=== PATIENT | male | born 1970 | race Two or more races ===

== ENCOUNTER 2019-04-27 13:28 | Emergency (ER) | payer MEDICAID ==
[~2019-04-27] VITALS: Ht 167.6 cm; Wt 100.0 kg
[~2019-04-27 13:28] MED LIST: CYCL-1 PO; HYDR-4383 PO
[2019-04-27] MEDS ORDERED: ondansetron/PF 4mg/2ml inj IV ONE (14:00)
[2019-04-27] MEDS ORDERED: normal saline 1000ML IV soln IVB ONE (14:00)
[2019-04-27] MEDS ORDERED: morphine 4 MG/ML inj SYRINge IV PRN (14:00)
[2019-04-27 14:13] LABS: BASOPHILS # (AUTO) 0.1 X10'3 (0-0.2); BASOPHILS % (AUTO) 0.7 % (0-1); EOSINOPHILS # (AUTO) 0.2 X10'3 (0-0.9); EOSINOPHILS % (AUTO) 2.1 % (0-6); HEMATOCRIT 45.8 % (42.0-52.0); HEMOGLOBIN 16.2 g/dl (14.0-17.9); LYMPHOCYTES # (AUTO) 2.4 X10'3 (1.1-4.8); LYMPHOCYTES % (AUTO) 22.2 % (21-51); MEAN CORPUSCULAR HEMOGLOBIN 31.2 PG (27.0-31.0); MEAN CORPUSCULAR HGB CONC 35.3 g/dL (33.0-36.5); MEAN CORPUSCULAR VOLUME 88.3 FL (78-98); MEAN PLATELET VOLUME 7.3 FL (7.4-10.4); MONOCYTES # (AUTO) 0.8 X10'3 (0-0.9); MONOCYTES % (AUTO) 7.5 % (2-12); NEUTROPHILS # (AUTO) 7.4 X10'3 (1.8-7.7); NEUTROPHILS % (AUTO) 67.5 % (42-75); PLATELET COUNT 279 X10'3 (140-440); RED BLOOD COUNT 5.19 X10'6 (4.70-6.10); RED CELL DISTRIBUTION WIDTH 13.2 % (11.5-14.5)
[2019-04-27] MEDS: aspirin 81mg tab.chew PO ONE ×2 (14:22→14:40)
[2019-04-27 14:30] LABS: ALANINE AMINOTRANSFERASE 116 U/L (12-78); ALBUMIN 3.7 G/DL (3.4-5.0); ALBUMIN/GLOBULIN RATIO 0.9 (1.1-1.5); ALKALINE PHOSPHATASE 50 IU/L (46-116); ANION GAP 11 (8-16); ASPARTATE AMINO TRANSFERASE 51 U/L (10-37); BILIRUBIN,TOTAL 0.7 MG/DL (0.1-1.0); BLOOD UREA NITROGEN 14 MG/DL (7-18); BUN/CREATININE RATIO 19.7 (5.4-32.0); CALCIUM 8.5 MG/DL (8.5-10.1); CHLORIDE 101 MMOL/L (99-107); CREATININE 0.71 MG/DL (0.60-1.10); GLUCOSE 125 MG/DL (70-104); LIPASE 269 U/L (73-393); MAGNESIUM 1.7 MG/DL (1.5-2.4); POTASSIUM 3.5 MMOL/L (3.5-5.1); SODIUM 137 MMOL/L (135-145); TOTAL CARBON DIOXIDE 25.5 MMOL/L (24-32); TOTAL PROTEIN 7.9 G/DL (6.4-8.2); eGFR > 90 ML/MIN
--- NOTE | 2019-04-27 14:34 | NUR ---
PT REPORTS PAIN IS MUCH BETTER NOW AFTER RECEIVING PAIN MED. HAS STOPPED MOANING AND TWISTING. GIRLFRIEND AT BEDSIDE.
[2019-04-27] MEDS ORDERED: mag hydrox/Alum hydrox/simeth 30ml oral suspension PO ONE (15:20)
[2019-04-27] MEDS ORDERED: LIDOcaine Viscous 15ml cup PO ONE (15:20)
[2019-04-27] MEDS ORDERED: famotidine 20mg tablet PO ONE (15:20)
[2019-04-27] MEDS ORDERED: SUCR1TAB34 PO (15:22)
[2019-04-27] MEDS ORDERED: PANT-47 PO (15:22)
[2019-04-27 15:42] VITALS: BP 153/77
== END 2019-04-27 16:30 | disposition home or self-care (01) ==
LOC: ER 13:28
DX: K29.20 Alcoholic gastritis without bleeding (principal); R51 Headache; F10.99 Alcohol use, unspecified with unspecified alcohol-induced disorder; F15.90 Other stimulant use, unspecified, uncomplicated; Z60.2 Problems related to living alone; Z79.899 Other long term (current) drug therapy; Y90.0 Blood alcohol level of less than 20 mg/100 ml
CPT/HCPCS: 36415; 71045; 76700; 80053; 83690; 83735; 83880; 84484; 85025; 93005; 96374; 96375; 99284; J2270; J2405; J7030